=== PATIENT | male | born 1960 | race African-American/Black ===

== ENCOUNTER → 2021-02-25 | Outpatient (CLI) | payer BC ==
--- NOTE | 2021-02-25 13:30 | KCIC ---
EXAM: Lumbar spine, 3 views; pelvis and right hip, 2 views. HISTORY: Pain. COMPARISON: None. FINDINGS: Lumbar spine: 3 views lumbar spine are obtained. There is minimal lumbar levocurvature centered at L2 . There is no significant listhesis. There is multilevel endplate remodeling. There is facet arthropa thy predominantly the lower lumbar levels. Pelvis and right hip: A frontal view the pelvis and frog-leg view the right hip are obtained. There i s no fracture, dislocation or subluxation. The femoral heads are normal in consideration. There are t iny bumps at the femoral head neck junctions, not within limits to suggest significant femoral acetab ular impingement. IMPRESSION: 1. Multilevel endplate remodeling and inferior predominant facet arthropathy involving the lumbar spi ne. 2. No acute osseous finding. Electronically signed by: Ritu Joy MD (02/25/2021 1:28 PM) [facility]
--- NOTE | 2021-02-27 10:39 | KCIC ---
MR LUMBAR SPINE [id number] History: Reason: LOW BACK PAIN AND RIGHT HIP PAIN / Spl. Instructions: / History: Right hip pain for 4-5 weeks. Pain radiates to right calf. Technique: Multiplanar, multi sequential MR imaging was performed of the lumbar spine. Comparison: None Findings: Normal vertebral body height and alignment. No fracture. Congenitally small spinal canal. Prominent e pidural fat within the inferior thecal sac. Conus terminates at the normal location. No evidence of nerve root clumping. L1-L2: Small disc bulge. No canal narrowing. Mild facet arthropathy. No neuroforaminal narrowing. L2-L3: Small disc bulge. Mild facet arthropathy. No canal narrowing. No neuroforaminal narrowing. L3-L4: Disc bulge. Mild canal narrowing. Subarticular recess narrowing. Mild facet arthropathy. Bila teral foraminal disc protrusions. Mild bilateral neuroforaminal narrowing. L4-L5: Disc bulge with central disc protrusion and annular fissure. Moderate canal narrowing. Subart icular recess narrowing. Mild facet arthropathy. Mild bilateral neuroforaminal narrowing. L5-S1: Right subarticular disc protrusion with annular fissure. Abutment and posterior displacement of the right descending S1 nerve root within the subarticular recess. Slight abutment of the descendi ng left S1 nerve root. Prominent epidural fat narrowing the thecal sac inferiorly. Canal narrowing. M ild bilateral neuroforaminal narrowing. Impression: 1. Multilevel lumbar spondylosis with congenitally small spinal canal and prominent epidural fat mos t prominent L4-5 and L5-S1. 2. L5-S1 right subarticular disc protrusion abutting and displacing the right descending S1 nerve ro ot. Correlate for radiculopathy. 3. L4-5 and L5-S1 canal narrowing. 4. Mild neuroforaminal narrowing. Electronically signed by: Aristeo Grayson DO (02/27/2021 10:37 AM) [id number]
== END ==
LOC: KCIC MRI 11:08
PROVIDERS: ATTEND Family Medicine
DX: M47.817 Spondylosis without myelopathy or radiculopathy, lumbosacral region (principal); M48.07 Spinal stenosis, lumbosacral region; M51.27 Other intervertebral disc displacement, lumbosacral region; M12.88 Other specific arthropathies, not elsewhere classified, other specified site; M43.8X6 Other specified deforming dorsopathies, lumbar region; M25.551 Pain in right hip
CPT/HCPCS: 72100; 72148; 73501

== ENCOUNTER 2021-12-12 08:22 | Day surgery (SDC) | payer BC ==
[~2021-12-12] VITALS: Ht 165.1 cm; Wt 77.2 kg
[~2021-12-12 08:22] MED LIST: BUPIVACAINE MPF 0.25% 30 ML VIAL. ONE; HYDROmorphone 2 MG/ML INJ. IVP PRN; IV RINGERS,LACTATED 1000ML 1,000 ML IV SCH; PROCHLORPERAZINE 10 MG/2 ML VIAL. IVP PRN; VANCOMYCIN 1 GM VIAL. ONE; fentaNYL PF VIAL 100 MCG/2 ML VIAL IVP PRN
[2021-12-12] MEDS ORDERED: ROPIVacaine 0.5% PF 20 ML VIAL. ONE (09:17)
[2021-12-12] MEDS ORDERED: MIDAZOLAM HCL/PF 2 MG/2 ML VIAL. ONE (09:17)
[2021-12-12 09:36] VITALS: BP 158/83
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
[2021-12-12] MEDS ORDERED: NAPR-683 PO (09:47)
[2021-12-12] MEDS ORDERED: LISI1TAB35 PO (09:47)
[2021-12-12] MEDS ORDERED: GABA600T7 PO (09:47)
[2021-12-12] MEDS ORDERED: ATOR20TA58 PO (09:47)
[2021-12-12] MEDS ORDERED: DEXAMETHASONE SOD PHOS 4 MG/ML VIAL ONE (10:53)
[2021-12-12] MEDS ORDERED: PROPOFOL 10 MG/ML (20ML) VIAL. IV ONE (10:53)
[2021-12-12] MEDS ORDERED: SEVOFLURANE > 120 MINUTES. IH ONE (10:53)
[2021-12-12] MEDS ORDERED: KETOROLAC 30 MG/ML VIAL. ONE (10:53)
[2021-12-12] MEDS ORDERED: ONDANSETRON PF 4 MG/2 ML VIAL. ONE (10:53)
[2021-12-12] MEDS ORDERED: LIDOCAINE 2% PF 5 ML VIAL. ONE (10:53)
[2021-12-12] MEDS ORDERED: HYDROmorphone 2 MG/ML INJ. ONE (11:04)
--- NOTE | 2021-12-12 12:57 | PDOC4 ---
OPERATIVE NOTE Date: Date: Dec 12, 2021 Pre-Op Diagnosis: Displaced, bilateral malleolear ankle fracture, left Post-Op Diagnosis: Same as above Procedure Performed: Bimalleolar ORIF, left Surgeon: Denise Felix DPM Anesthesia Type: General anesthesia with regional popliteal/saphenous block, left Blood Loss: 5 cc Specimans Obtained: None Findings: Distal fibula fracture extending from the ankle joint Transverse medial malleolar fracture without any lateral talar dome OCD lesion Syndesmotic joint was noted stable upon stress Complications: None Operative Note: Under mild sedation and preoperative popliteal and saphenous regional block to the surgical lower extremity, patient was brought to the operating room and placed on the operating table in a supine position. A time out was performed, to confirm patient's identity, location of surgery, and procedure. After induction of general anesthesia and intravenous antibiotics, a well-padded pneumatic thigh tourniquet was placed onto left lower extremity. The left lower extremity was scrubbed, prepped and draped in the usual sterile manner. Under intraoperative x-ray guidance, the distal medial and lateral malleoli, the fracture apices, center axial fibula were identified and marked for preoperative incision and surgical planning. An Esmarch bandage was utilized to exsanguinate the lower leg, and the tourniquet was inflated to 250 mmHg. Attention was directed to the distal fibula fracture site where a 2 cm linear full-thickness skin incision was made overlying the fracture site. The incision was carried deep with a combination of sharp and blunt dissection with care to protect and retract all neurovascular bundles. At this time, a spiral fibula fracture was visualized extending from the ankle joint to posteriorly and proximally. The fracture site was irrigated with copious saline solution. The hematoma was evacuated with a rongeur. All the invaginated periosteum was freed from the fracture site. Under direct visualization, the fracture was reduced with 2 lobster clamps. Intraoperative x-ray remarked adequate fibular length alevism and posterior spike reduction. Then a 1 cm linear incision was made to the distal tip of the fibula. Using a combination of sharp and blunt dissection, the incision was carried deep to the periosteal layer to the distal fibular fossa. Under intraoperative x-ray guidance, a 1.6 mm guidewire was introdiced proximally within the intramedullary canal of the fibula passing the fracture site. The position of the guidewire was confirmed both on lateral and AP of the ankle x-ray. A 6.2 mm tapered reamer over the guidewire was used thro ugh the tissue protector for the distal reaming. The flutes were buried at least 3 mm within the distal fibula. Fracture site remained stable and well reduced. Then a 3.2 mm reamer was isolated proximally over the guidewire through the tissue protector until the depth indicator collar was well within the distal fibula. Adequate chatter was noted proximally. And fracture reduct ion was maintained confirmed on x-ray. The guidewire was removed and fibula lock and outer jig were introduced proximally to the satisfactory depth where a 1.6 mm K wire was introduced from lateral to medial through the outer jig "end hole" and confirmed the distal portion of the nail was flush and well countersunk in the fibula. The 1.6 mm K wire was advanced into the distal tibia as one point of fixation. The syndesmotic screw holes were also noted within satisfactory position. Then, a 1.6 mm K wire was advanced through the provisional syndesmotic screw hole towards the medial cortex of the tibia which noted adequate and satisfactory syndesmotic hardware trajectory. Then, the talons were activated proximally to purchase the inner fibular cortex. At the "static position", one 2.7 millimeter screws was placed, via standard AO technique, to the distal fibula lock to secure the distal portion of the fracture. Adequate and satisfactory screw position and length were noted on the intraoperative x-ray. Then the attention was directed to the medial malleolus where a curvilinear incision was made along the inter-collicular site. The incision was carried deep with a combination of sharp and blunt dissection with care to protect and retract all the neurovascular bundles. At this time, a transverse medial malleolus fracture was visualized. The hematoma, periosteum were freed from the fracture site. The PT tendon and saphenous vein were protected and retracted out of the procedure site. Then the surgical site was irrigated with copious saline solution. The medial malleolus fracture was reduced with a dental pick and temporarily fixated with 0.054 inch K wires. Intraoperative x-ray remarked adequate fracture reduction. Then using AO standard technique, a 3.5 mm fully threaded cortical screw and a 4.0 mm partially-threaded cancellous screw were used to affix and stabilize the medial mall or fracture. Intraoperative x-ray remarked adequate fracture reduction, hardware position and length. Intraoperative syndesmotic joint stress test was negative for any instability or medial gutter widening. Then the surgery sites were closed with 3-0 Vicryl, 4-0 Monocryl and 4 nylon. The sites were dressed with Adaptic, gauze, 4 x 4, ABD. The left lower extremity was immobilized in a well-padded Muniz compression splint with ankle held in near 90 degrees. Tourniquet was deflated and adequate digital perfusion was noted. Patient tolerated the procedure and anesthesia well. Patient was transferred to PACU for continuous recovery with vital signs stable and neurovascular status intact. Pending 3 view of the left ankle x-ray in PACU. DENISE FELIX DPM Dec 12, 2021 12:57
[2021-12-12] MEDS ORDERED: GABAPENTIN 100 MG CAPSULE. PO ONE (13:00)
[2021-12-12] MEDS ORDERED: oxyCODONE/APAP 5/325 1 TAB TABLET PO ONE (13:00)
[2021-12-12] MEDS ORDERED: ACETAMINOPHEN 325 MG TABLET. PO ONE (13:00)
[2021-12-12] MEDS ORDERED: MORPHINE SULFATE 2 MG/ML INJ. ONE (13:10)
[2021-12-12] MEDS: MORPHINE SULFATE 2 MG/ML INJ. IVP PRN ×2 (13:15→13:25)
[2021-12-12] MEDS ORDERED: diphenhydrAMINE 50 MG/ML VIAL ONE (13:15)
[2021-12-12] MEDS ORDERED: diphenhydrAMINE 50 MG/ML VIAL IVP ONE (13:30)
[2021-12-12] MEDS ORDERED: HYDR-2761 PO (13:31)
--- NOTE | 2021-12-12 13:34 | RAD ---
EXAM: Left ankle, 3 views. HISTORY: Fracture fixation. COMPARISON: 12/10/2021 FINDINGS: 3 views of the left ankle are obtained. There is internal fixation of distal fibular metadi aphyseal and medial malleolar fractures in near anatomic alignment. There is soft tissue swelling due to recent surgery. There is external casting material. The ankle mortise intact. IMPRESSION: Internal fixation of distal fibular and medial malleolar fractures. Electronically signed by: Ritu Joy MD (12/12/2021 1:32 PM) [id number]
[2021-12-12] MEDS ORDERED: fentaNYL PF VIAL 100 MCG/2 ML VIAL ONE (14:09)
[2021-12-12 15:00] VITALS: BP 180/78
== END 2021-12-12 15:40 | disposition home or self-care (01) ==
LOC: SURG 08:22
PROVIDERS: ATTEND Podiatrist
DX: S82.842A Displaced bimalleolar fracture of left lower leg, initial encounter for closed fracture (principal); I10 Essential (primary) hypertension; E78.00 Pure hypercholesterolemia, unspecified; M19.90 Unspecified osteoarthritis, unspecified site; Z79.899 Other long term (current) drug therapy; Z98.890 Other specified postprocedural states; X58.XXXA Exposure to other specified factors, initial encounter; Y93.89 Activity, other specified; Y92.89 Other specified places as the place of occurrence of the external cause; Y99.8 Other external cause status
CPT/HCPCS: 27814; 73610; A4930; A6223; A6253; A6402; A6449; C1713; J0690; J1100; J1170; J1200; J1885; J2250; J2270; J2405; J2704; J2795; J3010; 76000; A6455; J3370; J3490